=== PATIENT | female | born 1980 | race Caucasian/White ===

== ENCOUNTER 2017-01-01 03:09 | Emergency (ER) | payer OTHER ==
[~2017-01-01] VITALS: Ht 160 cm; Wt 72.6 kg
--- NOTE | 2017-01-01 03:21 | ED HAND/WRIST INJURY COMPLAINT ---
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 yes Occurred: yesterday Duration: hour(s): Timing: single episode today Injury Environment: home Severity: moderate Pain/Injury Location: Left: 4th finger. Context: blow Method of Injury: direct blow Modifying Factors: Worsens With: movement. Associated Symptoms: swelling : No Patient currently breastfeeds: No HPI: 36-year-old woman presents with pain swelling and bruising of her left fourth digit. She states that at approximately 8:30 PM yesterday as she was moving furniture, a dresser landed on her left fourth digit. She noted over the next several hours that her left finger became increasingly swollen and tender to palpation with decreased range of motion. She states that she is otherwise well and has no other injury. Past History Travel History Traveled to [place] past 21 day No Medical History Any Pertinent Medical History? see below for history Surgical History Surgical History: none Psychosocial History What is your primary language French Tobacco Use: Refused to answer Family History Hx Contributory? No Review of Systems Review of Systems Constitutional: Reports: no symptoms. EENTM: Reports: no symptoms. Respiratory: Reports: no symptoms. Cardiovascular: Reports: no symptoms. GI: Reports: no symptoms. Genitourinary: Reports: no symptoms. Musculoskeletal: Reports: no symptoms. Skin: Reports: no symptoms. Neurological/Psychological: Reports: no symptoms. Hematologic/Endocrine: Reports: no symptoms. Immunologic/Allergic: Reports: no symptoms. All Other Systems: Reviewed and Negative Physical Exam Physical Exam General Appearance: well developed/nourished, mild distress Head: atraumatic Eyes: Bilateral: PERRL, EOMI. Ears, Nose, Throat: normal pharynx, normal ENT inspection, hearing grossly normal Neck: normal inspection, supple Cardiovascular/Respiratory: normal breath sounds, regular rate/rhythm Back: normal inspection Hand Left: left fourth digit with diffuse ecchymosis around the DIP and PIP joints. Range of motion is normal but compromised by pain. Normal capillary refill. No deformities. Hand Right: normal inspection, normal range of motion Skin: intact, normal color, warm/dry Lymphatic: no anterior cervical nori Progress Differential Diagnosis: contusion, dislocation, fracture, sprain Plan of Care: Orders Procedure Date/time Status XRY-FINGERS, LEFT 01/01 325 Active Diagnostic Imaging: Viewed by Me: Radiology Read. Discussed w/RAD: Radiology Read. Radiology Impression: left finger xray... no fx... see full report below. Comments: PATIENT: MAXWELL MART PRESENT AGE: 36 PATIENT ACCOUNT NO: [id number] : 80 LOCATION: [facility] ORDERING PHYSICIAN: SAMIR REYES MD SERVICE DATE: 01/01/17 EXAM TYPE: RAD - XRY-FINGERS, LEFT EXAMINATION: XR FINGER, LEFT CLINICAL INFORMATION: Fourth digit injury COMPARISON: None TECHNIQUE: Three views of the left fingers. FINDINGS: No fracture or dislocation. Mild soft tissue swelling of the fourth digit. Alignment is anatomic. Joint spaces are maintained. IMPRESSION: Fourth digit soft tissue swelling. No acute fracture or malalignment. DICTATED BY: ABIGAIL PARRISH MD DATE/TIME DICTATED:01/01/17343 SHIPFITTER APPRENTICE:LULA DATE/TIME TRANSCRIBED:01/01/17343 CONFIDENTIAL, DO NOT COPY WITHOUT APPROPRIATE AUTHORIZATION. <Electronically signed in Other Vendor System> SIGNED BY: ABIGAIL PARRISH MD 01/01 Departure Departure Disposition: HOME OR SELF CARE Condition: Stable Clinical Impression Primary Impression: Finger contusion Referrals: FEDERICO KOCH,CULLEN (PCP/Family) Departure Forms: Customer Survey General Discharge Information Prescriptions: Current Visit Scripts Ibuprofen 1 TAB PO TID PRN PAIN #30 TAB Comments BINH zhang taped fingers. Discussed at length. Patient to return if symptoms persist.
[2017-01-01 03:29] VITALS: BP 144/65
--- NOTE | 2017-01-01 03:48 | RADIOLOGY REPORT ---
EXAMINATION: XR FINGER, LEFT CLINICAL INFORMATION: Fourth digit injury COMPARISON: None TECHNIQUE: Three views of the left fingers. FINDINGS: No fracture or dislocation. Mild soft tissue swelling of the fourth digit. Alignment is anatomic. Joint spaces are maintained. IMPRESSION: Fourth digit soft tissue swelling. No acute fracture or malalignment.
[2017-01-01] MEDS ORDERED: IBUPROFEN800 M1 PO (03:50)
== END 2017-01-01 03:54 ==
LOC: ERH 03:09
DX: S60.042A Contusion of left ring finger without damage to nail, initial encounter (principal); W23.0XXA Caught, crushed, jammed, or pinched between moving objects, initial encounter; Y93.89 Activity, other specified; Y92.009 Unspecified place in unspecified non-institutional (private) residence as the place of occurrence of the external cause
CPT/HCPCS: 73140-LT